=== PATIENT | female | born 1965 | race American Indian/Alaskan Native ===

== ENCOUNTER 2019-04-24 10:21 | Emergency (ER) | payer OTHER ==
[2019-04-24 11:21] LABS: Basophils # (Auto) 0.1 K/mm3 (0.0-0.1); Basophils % (Auto) 0.6 % (0.0-1.8); Eosinophils # (Auto) 0.2 K/mm3 (0.0-0.4); Eosinophils % (Auto) 1.6 % (0.0-4.3); Hemoglobin 11.2 gm/dl (10.1-14.3); Lymphocytes # (Auto) 1.3 K/mm3 (1.2-5.4); Lymphocytes % (Auto) 10.3 % (13.4-35.0); Monocytes # (Auto) 0.9 K/mm3 (0.0-0.8); Monocytes % (Auto) 7.1 % (0.0-7.3)
[2019-04-24 11:29] LABS: Hematocrit 34.4 % (30.3-42.9); Mean Corpuscular HGB Conc 33 % (30-34); Mean Corpuscular Volume 85 fl (79-97); Platelet Count 460 K/mm3 (140-440); Red Blood Count 4.05 M/mm3 (3.65-5.03); Red Cell Distribution Width 14.8 % (13.2-15.2)
[2019-04-24] MEDS ORDERED: MORPHINE 4 MG/1 ML INJ IV ONE (12:04)
[2019-04-24] MEDS ORDERED: ONDANSETRON 4 MG/2 ML INJ IV ONE (12:04)
[2019-04-24 12:11] LABS: BUN/Creatinine Ratio 18; Blood Urea Nitrogen 16 mg/dL (7-17); Calcium 9.1 mg/dL (8.4-10.2); Hemolysis Index 3
[2019-04-24] MEDS ORDERED: SODIUM CHLORIDE 0.9% 1000 ML 1,000 ML IV ONE (12:15)
[2019-04-24] MEDS ORDERED: POTASSIUM CHLORIDE ER 20 MEQ TAB PO ONE (12:15)
[2019-04-24 12:33] LABS: Bilirubin,Urine NEG (Negative); Blood,Urine LG (Negative); Color,Urine Yellow (Yellow)
[2019-04-24 12:35] LABS: RBC,Urine > 182.0 /HPF (0.0-6.0)
--- NOTE | 2019-04-24 12:54 | Ultrasound Report ---
ULTRASOUND ABDOMEN, COMPLETE INDICATION: pelvic pain, bleeding, abd distension. COMPARISON: None available. FINDINGS: Pancreas: Poorly visualized secondary to bowel gas Abdominal Aorta: Normal. IVC: Normal. Liver: Markedly heterogeneous and enlarged measuring 18.0 cm in length with nodularity and nodular patel rface contour characteristic for cirrhosis. Gallbladder: Normal. Bile ducts: Normal. Common Bile Duct measures 2 mm. Right Kidney: Measures 10.6 cm with mild hydronephrosis and increased echotexture characteristic for medical renal disease Left Kidney: Measures 9.4 cm with mild hydronephrosis increased echotexture characteristic for medica l renal disease. No hydronephrosis Spleen: Normal in size measuring 6.8 cm in length Free fluid: None. Additional Findings: None. IMPRESSION: 1. Cirrhosis without sonographic evidence for portal hypertension. 2. Mild bilateral renal hydronephrosis. 3. Echogenic kidneys characteristic for medical renal disease. 3. Pancreas poorly visualized. Signer Name: Eliceo Holland MD Signed: 04/24/2019 12:50 PM Workstation Name: [id number]
--- NOTE | 2019-04-24 13:06 | Ultrasound Report ---
ULTRASOUND PELVIS INDICATION: pelvic pain, bleeding, abd distension. TECHNIQUE: Transvaginal. Duplex Color Doppler used: Yes. COMPARISON: None available FINDINGS: Uterus: Present. Size: 12.5 x 6.9 x 7.1 cm. Endometrial complex: Thickened measuring 1.7 cm. Mass lesions: None. Additional findings: None. Right Ovary: Not visualized. Left Ovary: Size: 2.4 x 1.6 x 2.0 cm Blood flow: Normal. Cyst or mass: None. Urinary Bladder: Normal. Free Fluid: None. Additional Findings: A dilated, fluid-filled tubular structure adjacent to left ovary may represent t he fallopian tube. IMPRESSION: 1. Suspected left hydrosalpinx versus tubo-ovarian abscess. Please correlate with the clinical findin gs. 2. Nonspecific thickening of the endometrium. Per the technologist, the patient is menopausal. BUSINESS BANKING MANAGER co nsultation may be helpful for further evaluation. Signer Name: Manuelito Cortez MD Signed: 04/24/2019 1:02 PM Workstation Name: [id number]
--- NOTE | 2019-04-24 13:16 | Emergency Department Report ---
ED Female HPI - General Chief complaint: Vaginal Bleeding Stated complaint: HEAVY VAG BLEEDING/THIGH PAIN Time Seen by Provider: 04/24/19 11:34 Source: patient Mode of arrival: Ambulatory Limitations: No Limitations - History of Present Illness Initial comments: Patient is a 53-year-old female presents emergency room with complaints of pelvic pain that began a few days ago. She states that last night she began to have heavy vaginal bleeding. She states she also has bilateral thigh pain. the patient states she has had a 20 lbs weight loss over the last couple of months. She denies any fall or injury. She states that she has not had a menstrual cycles since she was 46 years old. She has a past medical history of fibroids and has had myomectomies performed. She states that she has not seen NET MANAGER an approximate 3 years. she denies any allergies to meds. - Related Data Previous Rx's Medication Instructions Recorded Last Taken Type Ondansetron [Zofran Odt] 4 mg PO Q8HR PRN #10 tab.rapdis 04/24/19 Unknown Rx traMADol [Ultram 50 MG tab] 50 mg PO Q6HR PRN #12 tablet 04/24/19 Unknown Rx Allergies Allergy/AdvReac Type Severity Reaction Status Date / Time No Known Allergies Allergy Unverified 04/24/19 10:25 ED Review of Systems ROS: Stated complaint: HEAVY VAG BLEEDING/THIGH PAIN Other details as noted in HPI Comment: All other systems reviewed and negative ED Past Medical Hx - Past Medical History Previous Medical History?: Yes Hx Hypertension: Yes Hx Asthma: Yes Additional medical history: Fibroids - Surgical History Past Surgical History?: Yes Additional Surgical History: 2 myomectomy - Social History Smoking Status: Never Smoker Substance Use Type: None - Medications Home Medications: Home Medications Medication Instructions Recorded Confirmed Last Taken Type Ondansetron [Zofran Odt] 4 mg PO Q8HR PRN #10 tab.rapdis 04/24/19 Unknown Rx traMADol [Ultram 50 MG tab] 50 mg PO Q6HR PRN #12 tablet 04/24/19 Unknown Rx ED Physical Exam - General Limitations: No Limitations General appearance: alert, in no apparent distress - Head Head exam: Present: atraumatic, normocephalic - Eye Eye exam: Present: normal appearance - ENT ENT exam: Present: mucous membranes moist - Respiratory Respiratory exam: Present: normal lung sounds bilaterally. Absent: respiratory distress, wheezes, rales, rhonchi, stridor, chest wall tenderness, accessory muscle use, decreased breath sounds, prolonged expiratory - Cardiovascular Cardiovascular Exam: Present: regular rate, normal rhythm, normal heart sounds. Absent: systolic murmur, diastolic murmur, rubs, gallop - GI/Abdominal GI/Abdominal exam: Present: soft, distended, tenderness (suprapubic), normal bowel sounds. Absent: guarding, rebound, rigid - External exam: Absent: erythema, swelling, lesions, lacerations, ecchymosis Speculum exam: Present: vaginal bleeding (bright red blood present in the vaginal vault ), other (hardened tissue felt in the vaginal canal, lab intern: CHACORTA ramirez). Absent: vaginal discharge, cervical discharge Bi-manual exam: Absent: cervical motion tendernes, adnexal tenderness - Neurological Exam Neurological exam: Present: alert, oriented X3 - Psychiatric Psychiatric exam: Present: normal affect, normal mood - Skin Skin exam: Present: warm, dry, intact ED Course Vital Signs 04/24/19 04/24/19 10:47 13:11 Temperature 98.9 F Pulse Rate 113 H 99 H Respiratory 20 18 Rate Blood Pressure 133/88 Blood Pressure 108/82 [Left] O2 Sat by Pulse 97 99 Oximetry - Consultations Consultation #1: 04/24/19 14:[address] Porter, NET MANAGER regarding pt history and US results and WBC 12.5, hcg quant 4, Dr. Porter believes most likely hydrosalpinx and not a TOA, advised for pt to follow up with her in clinic this week as an outpatient, does not need admission. ED Medical Decision Making - Lab Data Result diagrams: 04/24/19 10:56 04/24/19 10:46 Lab Results 04/24/19 04/24/19 04/24/19 Range/Units 10:46 10:46 10:56 WBC 12.5 H (4.5-11.0) K/mm3 RBC 4.05 (3.65-5.03) M/mm3 Hgb 11.2 (10.1-14.3) gm/dl Hct 34.4 (30.3-42.9) % MCV 85 (79-97) fl MCH 28 (28-32) pg MCHC 33 (30-34) % RDW 14.8 (13.2-15.2) % Plt Count 460 H (140-440) K/mm3 Lymph % (Auto) 10.3 L (13.4-35.0) % [place] % (Auto) 7.1 (0.0-7.3) % Eos % (Auto) 1.6 (0.0-4.3) % Baso % (Auto) 0.6 (0.0-1.8) % Lymph # 1.3 (1.2-5.4) K/mm3 [place] # 0.9 H (0.0-0.8) K/mm3 Eos # 0.2 (0.0-0.4) K/mm3 Baso # 0.1 (0.0-0.1) K/mm3 Seg Neutrophils % 80.4 H (40.0-70.0) % Seg Neutrophils # 10.1 H (1.8-7.7) K/mm3 Sodium 132 L (137-145) mmol/L Potassium 3.4 L (3.6-5.0) mmol/L Chloride 88.5 L (98-107) mmol/L Carbon Dioxide 23 (22-30) mmol/L Anion Gap 24 mmol/L BUN 16 (7-17) mg/dL Creatinine 0.9 (0.7-1.2) mg/dL Estimated GFR > 60 ml/min BUN/Creatinine Ratio 18 % Glucose 86 (65-100) mg/dL Calcium 9.1 (8.4-10.2) mg/dL Total Bilirubin 1.30 H (0.1-1.2) mg/dL Direct Bilirubin 0.8 H (0-0.2) mg/dL Indirect Bilirubin 0.5 mg/dL AST 183 H (5-40) units/L ALT 122 H (7-56) units/L Alkaline Phosphatase 417 H (35-129) units/L Total Protein 7.1 (6.3-8.2) g/dL Albumin 3.8 L (3.9-5) g/dL Albumin/Globulin Ratio 1.2 % HCG, Qual (Negative) HCG, Quant (0-4) mIU/mL Urine Color (Yellow) Urine Turbidity (Clear) Urine pH (5.0-7.0) Ur Specific [place] (1.003-1.030) Urine Protein (Negative) mg/dL Urine Glucose (UA) (Negative) mg/dL Urine Ketones (Negative) mg/dL Urine Blood (Negative) Urine Nitrite (Negative) Urine Bilirubin (Negative) Urine Urobilinogen (<2.0) mg/dL Ur Leukocyte Esterase (Negative) Urine WBC (Auto) (0.0-6.0) /HPF Urine RBC (Auto) (0.0-6.0) /HPF U Epithel Cells (Auto) (0-13.0) /HPF Blood Type 04/24/19 04/24/19 04/24/19 Range/Units 10:56 10:56 10:56 WBC (4.5-11.0) K/mm3 RBC (3.65-5.03) M/mm3 Hgb (10.1-14.3) gm/dl Hct (30.3-42.9) % MCV (79-97) fl MCH (28-32) pg MCHC (30-34) % RDW (13.2-15.2) % Plt Count (140-440) K/mm3 Lymph % (Auto) (13.4-35.0) % [place] % (Auto) (0.0-7.3) % Eos % (Auto) (0.0-4.3) % Baso % (Auto) (0.0-1.8) % Lymph # (1.2-5.4) K/mm3 [place] # (0.0-0.8) K/mm3 Eos # (0.0-0.4) K/mm3 Baso # (0.0-0.1) K/mm3 Seg Neutrophils % (40.0-70.0) % Seg Neutrophils # (1.8-7.7) K/mm3 Sodium (137-145) mmol/L Potassium (3.6-5.0) mmol/L Chloride (98-107) mmol/L Carbon Dioxide (22-30) mmol/L Anion Gap mmol/L BUN (7-17) mg/dL Creatinine (0.7-1.2) mg/dL Estimated GFR ml/min BUN/Creatinine Ratio % Glucose (65-100) mg/dL Calcium (8.4-10.2) mg/dL Total Bilirubin (0.1-1.2) mg/dL Direct Bilirubin (0-0.2) mg/dL Indirect Bilirubin mg/dL AST (5-40) units/L ALT (7-56) units/L Alkaline Phosphatase (35-129) units/L Total Protein (6.3-8.2) g/dL Albumin (3.9-5) g/dL Albumin/Globulin Ratio % HCG, Qual Negative (Negative) HCG, Quant 4.17 H (0-4) mIU/mL Urine Color (Yellow) Urine Turbidity (Clear) Urine pH (5.0-7.0) Ur Specific [place] (1.003-1.030) Urine Protein (Negative) mg/dL Urine Glucose (UA) (Negative) mg/dL Urine Ketones (Negative) mg/dL Urine Blood (Negative) Urine Nitrite (Negative) Urine Bilirubin (Negative) Urine Urobilinogen (<2.0) mg/dL Ur Leukocyte Esterase (Negative) Urine WBC (Auto) (0.0-6.0) /HPF Urine RBC (Auto) (0.0-6.0) /HPF U Epithel Cells (Auto) (0-13.0) /HPF Blood Type B POSITIVE 04/24/19 Range/Units 12:12 WBC (4.5-11.0) K/mm3 RBC (3.65-5.03) M/mm3 Hgb (10.1-14.3) gm/dl Hct (30.3-42.9) % MCV (79-97) fl MCH (28-32) pg MCHC (30-34) % RDW (13.2-15.2) % Plt Count (140-440) K/mm3 Lymph % (Auto) (13.4-35.0) % [place] % (Auto) (0.0-7.3) % Eos % (Auto) (0.0-4.3) % Baso % (Auto) (0.0-1.8) % Lymph # (1.2-5.4) K/mm3 [place] # (0.0-0.8) K/mm3 Eos # (0.0-0.4) K/mm3 Baso # (0.0-0.1) K/mm3 Seg Neutrophils % (40.0-70.0) % Seg Neutrophils # (1.8-7.7) K/mm3 Sodium (137-145) mmol/L Potassium (3.6-5.0) mmol/L Chloride (98-107) mmol/L Carbon Dioxide (22-30) mmol/L Anion Gap mmol/L BUN (7-17) mg/dL Creatinine (0.7-1.2) mg/dL Estimated GFR ml/min BUN/Creatinine Ratio % Glucose (65-100) mg/dL Calcium (8.4-10.2) mg/dL Total Bilirubin (0.1-1.2) mg/dL Direct Bilirubin (0-0.2) mg/dL Indirect Bilirubin mg/dL AST (5-40) units/L ALT (7-56) units/L Alkaline Phosphatase (35-129) units/L Total Protein (6.3-8.2) g/dL Albumin (3.9-5) g/dL Albumin/Globulin Ratio % HCG, Qual (Negative) HCG, Quant (0-4) mIU/mL Urine Color Yellow (Yellow) Urine Turbidity Clear (Clear) Urine pH 6.0 (5.0-7.0) Ur Specific [place] 1.016 (1.003-1.030) Urine Protein 30 mg/dl (Negative) mg/dL Urine Glucose (UA) Neg (Negative) mg/dL Urine Ketones Neg (Negative) mg/dL Urine Blood Lg (Negative) Urine Nitrite Neg (Negative) Urine Bilirubin Neg (Negative) Urine Urobilinogen 4.0 (<2.0) mg/dL Ur Leukocyte Esterase Tr (Negative) Urine WBC (Auto) 15.0 H (0.0-6.0) /HPF Urine RBC (Auto) > 182.0 (0.0-6.0) /HPF U Epithel Cells (Auto) < 1.0 (0-13.0) /HPF Blood Type - Radiology Data Radiology results: report reviewed ULTRASOUND PELVIS INDICATION: pelvic pain, bleeding, abd distension. TECHNIQUE: Transvaginal. Duplex Color Doppler used: Yes. COMPARISON: None available FINDINGS: Uterus: Present. Size: 12.5 x 6.9 x 7.1 cm. Endometrial complex: Thickened measuring 1.7 cm. Mass lesions: None. Additional findings: None. Right Ovary: Not visualized. Left Ovary: Size: 2.4 x 1.6 x 2.0 cm Blood flow: Normal. Cyst or mass: None. Urinary Bladder: Normal. Free Fluid: None. Additional Findings: A dilated, fluid-filled tubular structure adjacent to left ovary may represent the fallopian tube. IMPRESSION: 1. Suspected left hydrosalpinx versus tubo-ovarian abscess. Please correlate with the clinical findings. 2. Nonspecific thickening of the endometrium. Per the technologist, the patient is menopausal. OXYACETYLENE BURNER consultation may be helpful for further evaluation. Signer Name: Manuelito Cortez MD Signed: 04/24/2019 1:02 PM Workstation Name: [id number] Transcribed By: [place] Dictated By: Manuelito Cortez MD Electronically Authenticated By: Manuelito Cortez MD Signed Date/Time: 04/24/19 1302 DD/ 1258 TD/TT: ULTRASOUND ABDOMEN, COMPLETE INDICATION: pelvic pain, bleeding, abd distension. COMPARISON: None available. FINDINGS: Pancreas: Poorly visualized secondary to bowel gas Abdominal Aorta: Normal. IVC: Normal. Liver: Markedly heterogeneous and enlarged measuring 18.0 cm in length with nodularity and nodular surface contour characteristic for cirrhosis. Gallbladder: Normal. Bile ducts: Normal. Common Bile Duct measures 2 mm. Right Kidney: Measures 10.6 cm with mild hydronephrosis and increased echotexture characteristic for medical renal disease Left Kidney: Measures 9.4 cm with mild hydronephrosis increased echotexture characteristic for medical renal disease. No hydronephrosis Spleen: Normal in size measuring 6.8 cm in length Free fluid: None. Additional Findings: None. IMPRESSION: 1. Cirrhosis without sonographic evidence for portal hypertension. 2. Mild bilateral renal hydronephrosis. 3. Echogenic kidneys characteristic for medical renal disease. 3. Pancreas poorly visualized. Signer Name: Eliceo Holland MD Signed: 04/24/2019 12:50 PM Workstation Name: [id number] Transcribed By: TL Dictated By: Eliceo Holland MD Electronically Authenticated By: Eliceo Holland MD Signed Date/Time: 04/24/19 1250 DD/ 1247 TD/TT: - Medical Decision Making Patient is a 53-year-old female presents emergency room with complaints of pelvic pain that began a few days ago. She states that last night she began to have heavy vaginal bleeding. She states she also has bilateral thigh pain. the patient states she has had a 20 lbs weight loss over the last couple of months. She denies any fall or injury. She states that she has not had a menstrual cycles since she was 46 years old. She has a past medical history of fibroids and has had myomectomies performed. She states that she has not seen NET MANAGER an approximate 3 years. she denies any allergies to meds. initial vitals with tachycardia which improved upon repeat. on exam: abd distension, suprapubic abdominal TTP, on pelvic exam: hardened tissue felt in the vaginal canal, vaginal bleeding present in the vaginal vault, no CMT, no adnexal tenderness. lab intern: CHACORTA ramirez. CBC with WBC of 12.5. BMP with mildly decreased electrolytes, repleted with normal saline IV and kdur. hepatic function with elevated LFTs, mildly elevated bilirubin. hcg quant is 4. spoke with Dr. oPrter, NET MANAGER regarding pt history and US results and WBC 12.5, hcg quant 4, Dr. Porter believes most likely hydrosalpinx and not a TOA, advised for pt to follow up with her in clinic this week as an outpatient, does not need admission. will have pt follow up with PCP regarding cirrhosis and elevated LFTs. pt states she used to be a heavy ETOH drinker. Dr. Ch states pt can follow up with PCP as an outpatient for liver dysfunction. discussed all results with pt and pt verbalized understanding and the importance of following up. given prescription for tramadol and zofran. advised pt to please take medication as prescribed. do not drive or operate heavy machinery while taking medication. please follow up with Dr. Porter, NET MANAGER in the next 2-3 days. please follow up with a primary care doctor in the next 2-3 days due to the cirrhosis. do not drink alcohol or take tylenol. return to the emergency room for any new or worsening symptoms. - Differential Diagnosis uterine CA, fibroids, ovarian CA, TOA, endometriosis, ectopic Critical care attestation.: If time is entered above; I have spent that time in minutes in the direct care of this critically ill patient, excluding procedure time. ED Disposition Clinical Impression: Hydrosalpinx, Pelvic pain, Abnormal uterine bleeding (AUB), Elevated LFTs Cirrhosis Qualifiers: Hepatic cirrhosis type: alcoholic cirrhosis Ascites presence: without ascites Qualified Code(s): K70.30 - Alcoholic cirrhosis of liver without ascites Disposition: TO HOME OR SELFCARE Is pt being admited?: No Does the pt Need Aspirin: No Condition: Stable Instructions: Cirrhosis (ED), Menorrhagia (ED) Additional Instructions: please take medication as prescribed. do not drive or operate heavy machinery while taking medication. please follow up with Dr. Porter, NET MANAGER in the next 2-3 days. please follow up with a primary care doctor in the next 2-3 days due to the cirrhosis. do not drink alcohol or take tylenol. return to the emergency room for any new or worsening symptoms. Prescriptions: traMADol [Ultram 50 MG tab] 50 mg PO Q6HR PRN #12 tablet PRN Reason: Pain , Severe (7-10) Ondansetron [Zofran Odt] 4 mg PO Q8HR PRN #10 tab.rapdis PRN Reason: Nausea And Vomiting Referrals: [facility] MD ANGELES [Primary Care Provider] - 2-3 Days CHRIS PORTER MD [Staff Physician] - 2-3 Days Time of Disposition: 14:29 Print Language: KHMER
[2019-04-24 14:08] LABS: Albumin 3.8 g/dL (3.9-5); Bilirubin,Direct 0.8 mg/dL (0-0.2)
[2019-04-24 15:12] VITALS: BP 118/80
== END 2019-04-24 15:12 | disposition home or self-care (01) ==
LOC: ED 10:21
DX: N93.9 Abnormal uterine and vaginal bleeding, unspecified (principal); K70.30 Alcoholic cirrhosis of liver without ascites; R94.5 Abnormal results of liver function studies; N70.11 Chronic salpingitis; I10 Essential (primary) hypertension; J45.909 Unspecified asthma, uncomplicated; M79.651 Pain in right thigh; M79.652 Pain in left thigh; Z79.899 Other long term (current) drug therapy
CPT/HCPCS: 36415; 76700; 76830; 80048; 80076; 81001; 84702; 84703; 85025; 86900; 86901; 87086; 96374; 96375; 99284; J2270; J2405; J7030